=== PATIENT | male | born 1950 | race Caucasian/White ===

== ENCOUNTER 2025-09-08 13:03 | Emergency (ER) | payer OTHER, SELFPAY ==
[2025-09-08 13:07] VITALS: BP 107/79
[2025-09-08 13:37] LABS: Hematocrit 41.6 % (39.0-52.0); Hemoglobin 13.5 g/dL (13.0-18.0); Mean Corp Hgb Conc. 32.5 g/dL (33.0-37.0); Mean Corpuscular Volume 85.1 fL (80.0-94.0); Nucleated Red Blood Cells % 0 % (-); Platelet Count 211 10^3/uL (130-400); Red Cell Dist. Width 15.7 % (11.5-14.5)
[2025-09-08 13:52] LABS: ALT (SGPT) 23 U/L (0-50); AST (SGOT) 29 U/L (17-59); Albumin 4.4 g/dl (3.5-5.0); Alkaline Phosphatase 73 U/L (38-126); Blood Urea Nitrogen 19 mg/dl (9-20); Calcium 9.6 mg/dl (8.4-10.2); Carbon Dioxide 28 mmol/L (22-30); Chloride 105 mmol/L (98-107); Glucose 97 mg/dl (70-99); Potassium 4.3 mmol/L (3.5-5.1); Sodium 138 mmol/L (135-145); Total Protein 6.9 g/dl (6.3-8.2); eGFR > 60.00
[2025-09-08 14:03] LABS: Troponin I 0.024 ng/ml
[2025-09-08 15:48] VITALS: BP 111/72; BMI 31.6
[2025-09-08 16:00] VITALS: BP 86/62
[2025-09-08 17:00] VITALS: BP 120/90
[2025-09-08 17:06] LABS: Troponin I 0.025 ng/ml
--- NOTE | 2025-09-08 19:25 | ED.GENMED ---
History of Present Illness
General
Chief Complaint: Breathing Problem
Source: patient and spouse
Exam Limitations: none
Time Seen by Provider: 09/08/25 14:45
Nursing documentation reviewed up to this point in time: agreed with
History of Present Illness
History of Present Illness:
The patient is a 74-year-old male past with history of hypertension hyperlipidemia aortic stenosis presenting to the emergency department today with concerns of shortness of breath and chest pain that occurred just prior to arrival when doing yard
work. Symptoms have since resolved otherwise feels well at this point. 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
Review of Systems
Review of Systems
Allergies reviewed?: Yes
All Other Systems: ROS reviewed and negative except as documented in HPI and ROS
Phy Exam
Physical Exam
Physical Exam:
GENERAL: Alert , in no apparent distress
EYE: pupils equal and reactive
NECK: Supple, no significant adenopathy.
ENT: o/p clr, mmm.
CARDIAC: Regular rate and rhythm .
LUNGS: Clear breath sounds bilaterally, no acute respiratory distress, no wheezes/rales/rhonchi
ABDOMEN: Soft, without focal tenderness, no r/g, no cvat
NEUROLOGICAL: Alert and oriented, no focal neuro deficits
SKIN: Warm and dry, skin intact.
MUSCULOSKELETAL: No edema, well perfused.
PSYCH: Normal and appropriate interaction.
Scores
Heart Failure Risk
Heart Failure Risk Score: Not Applicable
Course
Orders/Labs/Results
Orders:
Orders
09/08/25 13:13
Electrocardiogram (*1) Urgent
Reason for Study: Shortness of Breath
EKG- Treatment ONCE
09/08/25 13:24
Complete Blood Count/With Diff Urgent
Comprehensive Metabolic Panel Urgent
Troponin I Urgent
09/08/25 15:33
Chest [CR Chest - 2 Views ] Urgent
Comment:
Reason For Exam: sob
09/08/25 15:56
Electrocardiogram (*1) Urgent
Reason for Study: Chest Pain
EKG- Treatment ONCE
09/08/25 16:34
Troponin I Urgent
Abnormal Lab Results
09/08/25
13:24
MCHC 32.5 L g/dL
(33.0-37.0)
RDW 15.7 H %
(11.5-14.5)
MPV 11.0 H fL
(7.4-10.4)
Absolute Monos (auto) 0.7 H 10^3/uL
(0.1-0.6)
Lymphocytes % 16.1 L %
(20.5-51.1)
09/08/25 13:24
09/08/25 13:24
Vital Signs
Initial and Last Documented VS:
Initial Vital Signs
Temp Pulse Resp BP Pulse Ox
98.4 F 76 18 107/79 98
09/08/25 13:07 09/08/25 13:07 09/08/25 13:07 09/08/25 13:07 09/08/25 13:07
Last Documented Vital Signs
Temp Pulse Resp BP Pulse Ox
98.6 F 53 13 141/79 96
09/08/25 15:48 09/08/25 17:15 09/08/25 17:15 09/08/25 19:32 09/08/25 19:26
MDM/Problems Addressed
MDM/Problems Addressed:
74-year-old male presenting to the emergency department with a brief episode of shortness of breath and chest pressure that occurred prior to arrival while doing yard work. Now asymptomatic. Vital signs normal on arrival initial EKG right bundle
branch block but no significant ischemic changes. Initial troponin negative. Troponin was repeated at 3 hours also negative EKG was repeated with T wave inversions to lead III and aVF. These new findings and the patient's story was discussed with
cardiology they felt he was low risk for ACS. 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 Return precautions were given.
*Pulse Oximetry
SaO2: 96
Oxygen Mode of Delivery: Room air
Patient hypoxic: no (96)
*Critical Care Note
Total Time (30-74mins, 75-104mins- exclusive of procedures): Not Applicable
ED Attending Note
-
Portions of this chart may have been created with voice recognition software.� Occasional wrong word or��sound alike� substitutions may have occurred due to the inherent limitations of voice recognition software.
Discharge Plan
Departure
Patient Disposition: Home (Routine Discharge)
Date of Disposition: 09/08/25
Time of Disposition: 19:26
Patient with high blood pressure during this ER visit?: No
Condition: Good
Covid-19: Not Applicable
Discharge Problem:
Shortness of breath
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
Prescriptions:
No Action
hydrochlorothiazide 25 mg Tablet
25 mg PO DAILY
metoprolol tartrate 25 mg Tablet
25 mg PO DAILY
sacubitril-valsartan [Entresto] 24-26 mg Tablet
1 tab PO BID
Referrals:
Gale Small DO [Family Provider, Family Practice]
Activity Restrictions/Additional Instructions:
You came to the emergency department today with concerns of an episode of shortness of breath and chest pain. Here had a reassuring assessment. Please follow closely with your software development advisor within 1 week. Return for any worsening, new or
concerning symptoms.
Interventions
Interventions:
*Risk Screen - Suicide Last Done: 09/08/25 13:07
*General Assessment Last Done: 09/08/25 13:07
*Neglect/Abuse Screening Last Done: 09/08/25 13:07
*ED- Fall Risk Assessment Last Done: 09/08/25 15:48
*ED COVID-19 Vaccine History Last Done: 09/08/25 15:48
*ED Influenza Vaccine History Last Done: 09/08/25 15:48
*Nursing Disposition Last Done: 09/08/25 19:32
ED- Cardiac Assessment Last Done: 09/08/25 15:48
ED- Pulmonary Assessment Last Done: 09/08/25 15:48
Discharge Date and Time
Discharge Date/Time: 09/08/25 19:33
Print Language: GREENLANDIC
[2025-09-08 19:32] VITALS: BP 141/79
== END 2025-09-08 19:33 | disposition home or self-care (01) ==
LOC: EMR 13:03
PROVIDERS: Physician Assistant; EMERGENCY PHYSICIAN Emergency Medicine; FAMILY PHYSICIAN Family Medicine
DX: R06.02 Shortness of breath (principal); I45.10 Unspecified right bundle-branch block; I44.0 Atrioventricular block, first degree; I35.0 Nonrheumatic aortic (valve) stenosis; I10 Essential (primary) hypertension; E78.5 Hyperlipidemia, unspecified; Z95.2 Presence of prosthetic heart valve
CPT/HCPCS: 99284; 71046; 80053; 84484; 85025; 93005